=== PATIENT | female | born 1960 | race Caucasian/White ===

== ENCOUNTER 2018-08-19 16:13 | Emergency (ER) | payer OTHER ==
[~2018-08-19] VITALS: Ht 170.2 cm; Wt 108.0 kg
--- NOTE | 2018-08-19 16:54 | PHYS DOC ---
Past History Past Medical History: Hypothyroid Past Surgical History: No Surgical History Alcohol Use: Occasionally Drug Use: None Adult General Chief Complaint Chief Complaint: RAPID HEART RATE [facility] HPI Patient is a 57 year old female who presents with complaining of episodes of palpitations since 1500 today. Patient states she woke up from a afternoon nap with palpitation without chest pain, shortness of breath, dizziness, nausea and generalized weakness. Patient states she was fall asleep again and had several times the palpitation. Patient states the last episode lasts about 10 minutes and she had blood pressure of 170 and heart rate of 111 at the same time. Patient denies history of dyspnea, recent dehydration, fever and chills, diarrhea and constipation, nausea and vomiting. Review of Systems Review of Systems Constitutional: Denies fever or chills [] Eyes: Denies change in visual acuity, redness, or eye pain [] HENT: Denies nasal congestion or sore throat [] Respiratory: Denies cough or shortness of breath [] Cardiovascular: No additional information not addressed in HPI [] GI: Denies abdominal pain, nausea, vomiting, bloody stools or diarrhea [] : Denies dysuria or hematuria [] Musculoskeletal: Denies back pain or joint pain [] Integument: Denies rash or skin lesions [] Neurologic: Denies headache, focal weakness or sensory changes [] Endocrine: Denies polyuria or polydipsia [] All other systems were reviewed and found to be within normal limits, except as documented in this note. Allergies Allergies Allergies Coded Allergies Type Severity Reaction Last Updated Verified No Known Drug Allergies 11/10/15 No Physical Exam Physical Exam Constitutional: Well developed, well nourished, mild acute distress, non-toxic appearance. [] HENT: Normocephalic, atraumatic, oropharynx moist, no oral exudates, nose normal. [] Eyes: PERRLA, EOMI, conjunctiva normal, no discharge. [] Neck: Normal range of motion, no tenderness, supple, no stridor. [] Cardiovascular:Heart rate regular rhythm, no murmur [] Lungs & Thorax: Bilateral breath sounds clear to auscultation [] Abdomen: Bowel sounds normal, soft, no tenderness, no masses, no pulsatile masses. [] Skin: Warm, dry, no erythema, no rash. [] Back: No tenderness, no CVA tenderness. [] Extremities: No tenderness, no cyanosis, no clubbing, ROM intact, no edema. [] Neurologic: Alert and oriented X 3, normal motor function, normal sensory function, no focal deficits noted. [] Psychologic: Affect anxious, judgement normal, mood normal. [] Current Patient Data Vital Signs Vital Signs Date Time Temp Pulse Resp B/P (MAP) Pulse Ox O2 Delivery O2 Flow Rate FiO2 08/19/18 16:30 97.9 108 10 97 Room Air EKG EKG EKG interpreted by me. EKG at 1636 showed normal sinus rhythm at rate of 97, PVCs, left axis deviation, left anterior fascicular block, no acute ST and T- wave abnormalities. Radiology/Procedures Radiology/Procedures [address] [address] IMAGING REPORT Signed PATIENT: PHYLLIS TOLBERT ACCOUNT: [id number] : 1960 LOCATION: ER AGE: 57 SEX: F EXAM STATUS: REG ER ORD. PHYSICIAN: BREANNE STEVE MD REASON: palpitation PROCEDURE: CHEST PA & LATERAL CHEST PA LATERAL Clinical indications: Palpitations. COMPARISON: None available. Findings: No acute lung infiltrate or pleural effusion or pulmonary edema or lung mass or pneumothorax is seen. The heart size, pulmonary vasculature, mediastinum and both priscilla are unremarkable. The osseous structures appear intact. Impression: No acute radiographic abnormality is seen. Electronically signed by: Keenan Arevalo MD (08/19/2018 5:03 PM) [facility] DICTATED AND SIGNED BY: KEENAN AREVALO MD DATE: 08/19/181701 CC: BRANDAN GRAHAM DO; BREANNE STEVE MD ~ Course & Med Decision Making Course & Med Decision Making Pertinent Labs and Imaging studies reviewed. (See chart for details) discharge: I've spoken with the patient and/or caregivers. I've explained the patient's condition, diagnosis and treatment plan based on information available to me at this time. I've answered the patient's and/or caregivers questions and addressed any concerns. The patient and/or caregivers have a good understanding the patient's diagnosis, condition and treatment plan as can be expected at this point. Vital signs have been stabilized. The patient's condition is stable for discharge from the emergency department. The patient will pursue further outpatient evaluation with her primary care provider or other designated consulting physician as outlined in the discharge instructions. Patient and/or caregivers are agreeable to this plan of care and follow-up instructions have been explained in detail. The patient and/or caregivers have received these instructions in written format and expressed understanding of these discharge instructions. The patient and her caregivers are aware that if any significant change in condition or worsening of symptoms should prompt him to immediately return to this of the closest emergency department. If an emergent department is not readily available I would encourage him to call 911. Dragon Disclaimer Dragon Disclaimer This electronic medical record was generated, in whole or in part, using a voice recognition dictation system. Departure Departure: Impression: Primary Impression: Palpitation Additional Impression: Hypomagnesemia Disposition: HOME, SELF-CARE (at 1735) Condition: IMPROVED Referrals: BRANDAN GRAHAM DO (PCP) Patient Instructions: Hypomagnesemia, Palpitations Additional Instructions: Drink plenty of liquids Follow-up with your primary care physician in 3-5 days for following up the results of thyroid tenderness Return to ER if not getting better Decrease your caffeine drinks Problem Qualifiers BREANNE STEVE MD Aug 19, 2018 16:54
[2018-08-19 17:06] LABS: BASO % 0 % (0-3); EOS # 0.1 x10^3/uL (0.0-0.7); EOS % 1 % (0-3); HEMATOCRIT 36.9 % (36.0-47.0); LYMPH # 1.6 x10^3/uL (1.0-4.8); LYMPH % 22 % (24-48); MEAN CORPUSCULAR HEMOGLOBIN 27 pg (25-35); MEAN CORPUSCULAR HGB CONC 33 g/dL (31-37); MEAN CORPUSCULAR VOLUME 84 fL (79-100); MONO # 0.6 x10^3/uL (0.0-1.1); MONO % 8 % (0-9); NEUT # 5.1 x10^3uL (1.8-7.7); NEUT % 69 % (31-73); PLATELET COUNT 262 x10^3/uL (140-400); RED BLOOD COUNT 4.38 x10^6/uL (3.50-5.40); RED CELL DISTRIBUTION WIDTH 13.8 % (11.5-14.5); WHITE BLOOD COUNT 7.3 x10^3/uL (4.0-11.0)
--- NOTE | 2018-08-19 17:06 | RAD ---
CHEST PA LATERAL Clinical indications: Palpitations. COMPARISON: None available. Findings: No acute lung infiltrate or pleural effusion or pulmonary edema or lung mass or pneumothorax is seen. The heart size, pulmonary vasculature, mediastinum and both priscilla are unremarkable. The osseous structures appear intact. Impression: No acute radiographic abnormality is seen. Electronically signed by: James Arevalo MD (08/19/2018 5:03 PM) [facility]
[2018-08-19 17:23] LABS: ALBUMIN 3.3 g/dL (3.4-5.0); ALBUMIN/GLOBULIN RATIO 0.9 (1.0-1.7); CALCIUM 8.9 mg/dL (8.5-10.1); CREATININE 0.9 mg/dL (0.6-1.0); GFR 64.3; MAGNESIUM 1.7 mg/dL (1.8-2.4); POTASSIUM 3.8 mmol/L (3.5-5.1); TOTAL BILIRUBIN 0.2 mg/dL (0.2-1.0); TOTAL PROTEIN 6.9 g/dL (6.4-8.2)
--- NOTE | 2018-08-19 17:38 | EKG ---
[address] [address] Test Date: 2018-08-19 Test Time: 16:36:06 Pat Name: PHYLLIS TOLBERT Department: Room: Gender: F Fixed Income Director: GAMAL : 1960 Requested By: BREANNE STEVE Order Number: [id number] Reading MD: Bowen Steward Measurements Intervals [place] Rate: 97 P: 59 OR: 198 QRS: -30 QRSD: 72 T: 48 QT: 348 QTc: 446 Interpretive Statements SINUS RHYTHM ATRIAL PREMATURE COMPLEX(ES) ABNORMAL LEFT AXIS DEVIATION LEFT ANTERIOR FASCICULAR BLOCK ABNORMAL ECG RI6.01 No previous ECG available for comparison Electronically Signed On 08-27-2018 8:06:29 [employer] by Bowen Steward
[2018-08-19 17:49] VITALS: BP 131/67
== END 2018-08-19 17:51 | disposition home or self-care (01) ==
LOC: ER 16:13
DX: R00.2 Palpitations (principal); E83.42 Hypomagnesemia; E03.9 Hypothyroidism, unspecified
CPT/HCPCS: 36415; 71046; 80053; 82550; 83735; 83880; 84443; 84484; 85025; 93005; 99284

== ENCOUNTER 2019-11-18 18:38 | Emergency (ER) | payer OTHER ==
[~2019-11-18] VITALS: Ht 170.2 cm; Wt 115.0 kg
[2019-11-18 18:50] VITALS: BP 134/81
[2019-11-18] MEDS ORDERED: ACYC800T PO (19:23)
--- NOTE | 2019-11-18 19:23 | PHYS DOC ---
Past History Past Medical History: Hypothyroid, Other Additional Past Medical Histor: idiopathic hypersonombulance Past Surgical History: Tubal ligation, Other Additional Past Surgical Histo: right carpal tunnel, cataract bilateral, D&C x1, mortonnewroma left left Alcohol Use: Occasionally Drug Use: None General Adult EDM: Chief Complaint: left shoulder pain HPI: HPI: Patient is a 59-year-old female who presented to ER today for evaluation of left shoulder pain started this morning when she woke up from her sleep. Patient denies any injury. Patient said the pain radiated to her left elbow and left wrist area, denies any chest pain, no trouble breathing. Patient said whenever she moves her shoulder in certain way she has pain. Review of Systems: Review of Systems: Constitutional: Denies fever or chills Eyes: Denies change in visual acuity HENT: Denies nasal congestion or sore throat Respiratory: Denies cough or shortness of breath Cardiovascular: Denies chest pain or edema GI: Denies abdominal pain, nausea, vomiting, bloody stools or diarrhea : Denies dysuria Musculoskeletal: Positive for left shoulder pain, Integument: Denies rash Neurologic: Denies headache, focal weakness or sensory changes Endocrine: Denies polyuria or polydipsia Lymphatic: Denies swollen glands Psychiatric: Denies depression or anxiety Heart Score: Risk Factors: Risk Factors: DM, Current or recent (<one month) smoker, HTN, HLP, family history of CAD, obesity. Risk Scores: Score 0 - 3: 2.5% MACE over next 6 weeks - Discharge Home Score 4 - 6: 20.3% MACE over next 6 weeks - Admit for Clinical Observation Score 7 - 10: 72.7% MACE over next 6 weeks - Early Invasive Strategies Allergies: Allergies: Allergies Coded Allergies Type Severity Reaction Last Updated Verified quinine Allergy Unknown 11/18/19 Yes tramadol Allergy Unknown 11/18/19 Yes Physical Exam: PE: Constitutional: Well developed, well nourished, no acute distress, non-toxic appearance. [] HENT: Normocephalic, atraumatic, bilateral external ears normal, oropharynx moist, no oral exudates, nose normal. [] Eyes: PERRLA, EOMI, conjunctiva normal, no discharge. [] Neck: Normal range of motion, no tenderness, supple, no stridor. [] Cardiovascular:Heart rate regular rhythm, no murmur [] Lungs & Thorax: Bilateral breath sounds clear to auscultation [] Abdomen: Bowel sounds normal, soft, no tenderness, no masses, no pulsatile masses. [] Skin: Warm, dry, no erythema, there are vesicular rash on left scapular, left upper back area, not crossing midline. Back: No tenderness, no CVA tenderness. [] Extremities: No tenderness, no cyanosis, no clubbing, ROM intact, no edema. [] Neurologic: Alert and oriented X 3, normal motor function, normal sensory function, no focal deficits noted. [] Psychologic: Affect normal, judgement normal, mood normal. [] Current Patient Data: Vital Signs: Vital Signs Date Time Temp Pulse Resp B/P (MAP) Pulse Ox O2 Delivery O2 Flow Rate FiO2 11/18/19 18:50 98.2 87 16 134/81 (98) 98 Room Air EKG: EKG: [] Radiology/Procedures: Radiology/Procedures: [] Course & Med Decision Making: Course & Med Decision Making Pertinent Labs and Imaging studies reviewed. (See chart for details) Patient is a 59-year-old female who was evaluated in the ER today due to left shoulder pain that radiated down to her left elbow, left hand and finger. no chest pain, no trouble breathing, no injury. There ARE vesicular RASH ON LEFT SCAPULAR AREA AND LEFT UPPER BACK, NOT CROSSING MIDLINE, CONSISTENT WITH SHINGLES. There is full range of motion of left shoulder, full range of motion of left elbow and left wrist. Patient will be discharged home with prescription for acyclovir to treat shingles. Kristin Disclaimer: Kristin Disclaimer: This electronic medical record was generated, in whole or in part, using a voice recognition dictation system. Departure Departure: Impression: Primary Impression: Shingles Disposition: 01 HOME/RESIDENCE PRIOR TO ADM Condition: STABLE Referrals: ROLY DING MD (PCP) PLEASE FOLLOW UP WITH YOUR DOCTOR NEXT WEEK FOR REEVALUATION. Patient Instructions: Shingles Scripts Acyclovir (ACYCLOVIR) 800 Mg Tablet 1 TAB PO 5XDAY for SHINGLE for 10 Days, #50 TAB Prov: DANGELO MARTINEZ DO 11/18/19 DANGELO MARTINEZ DO November 18, 2019 19:23
== END 2019-11-18 19:30 | disposition home or self-care (01) ==
LOC: ER 18:38
DX: B02.9 Zoster without complications (principal); M25.512 Pain in left shoulder; E03.9 Hypothyroidism, unspecified; Z88.6 Allergy status to analgesic agent; Z88.8 Allergy status to other drugs, medicaments and biological substances
CPT/HCPCS: 99283